=== PATIENT | female | born 1950 | race Caucasian/White ===

== ENCOUNTER → 2022-02-21 | Outpatient (CLI) | payer MEDICARE, OTHER ==
[2022-02-21 23:39] LABS: African American GFR (CKD) 47.8 (60.0-200.0); Anion Gap 14.4 mmol/L (10.00-18.00); BUN/Creat Ratio 12.38 Ratio (12.00-20.00); Blood Urea Nitrogen 16.1 mg/dL (9.0-27.0); Carbon Dioxide 23.7 mmol/L (20.0-27.5); Non-African American GFR(CKD) 41.2 (60.0-200.0); Potassium 4.3 mmol/L (3.5-5.5)
[2022-02-22 09:39] LABS: HCT 42.9 % (37.2-46.3); MCH 29.2 pg (27.0-32.0); MCHC 32.6 g/dL (32.0-37.0); MCV 89.4 fL (80.0-97.0); Mean Platelet Volume 10.1 fL (9.5-12.2); NRBC Per 100 WBC 0 /100 WBCS (0.0-0.0); Platelet Count 320 X 10*3/uL (140-440); RDW 13.1 % (11.5-14.5); WBC 21.48 X 10*3/uL (4.50-10.00)
[2022-02-22 11:44] LABS: Basophils # (A) 0.04 X 10*3/uL (0.00-0.10); Basophils % (A) 0.2 %; Eosinophils # (A) 0 X 10*3/uL (0.04-0.35); Eosinophils % (A) 0 %; Immature Grans, Automated 0.5 %; Lymphocytes # (A) 1.76 X 10*3/uL (0.90-5.00); Lymphocytes % (A) 8.2 %; Monocytes % (A) 13.5 %; Neutrophils # (A) 16.68 X 10*3/uL (1.80-7.70); Neutrophils % (A) 77.6 %
[2022-02-22 11:45] LABS: RBC Morphology NORMAL
== END | disposition home or self-care (01) ==
LOC: LABPAT 15:05
PROVIDERS: ATTEND Urology
DX: Z01.812 Encounter for preprocedural laboratory examination (principal); N20.1 Calculus of ureter; N20.0 Calculus of kidney
CPT/HCPCS: 80048; 85025; 87086

== ENCOUNTER 2022-03-03 06:00 | Day surgery (SDC) | payer MEDICARE, OTHER ==
--- NOTE | 2022-03-02 22:02 | P.GSHP ---
History of Present Illness H&P Date: 03/02/22 Chief Complaint: Right flank pain The patient is a 71-year-old white female with a history of urolithiasis. She was hospitalized in January 2022 with a UTI complicated by a 5-6 mm right distal ureteral calculus. The computed tomography scan also showed a 3 mm right lower pole renal calculus and a punctate left lower pole renal calculus. She underwent placement of a left ureteral stent. Urine culture showed Klebsiella pneumoniae, while blood cultures showed E. coli. Her UTI has resolved. She now comes for cystoscopy, right ureteral stent removal, right ureteroscopy with holmium laser lithotripsy and stone basketing. - Constitutional Constitutional: Reports weakness, Denies chills, Denies fever - Genitourinary (Female) Genitourinary: Reports flank pain, Reports kidney stones Past Medical History Past Medical History: Asthma, Diabetes Mellitus, Hypertension Additional Past Medical History / Comment(s): fast heart rate, kidney stones at present, hx of "blood Sepsis" [facility] 01/26/-01/30 ICU for kidney stone. pt still doesnt feel well. stomach is upset, isnt eating a lot. History of Any Multi-Drug Resistant Organisms: None Reported Past Surgical History: Tonsillectomy Additional Past Surgical History / Comment(s): D&C, cystoscopy with right ureteral stent insertion Past Anesthesia/Blood Transfusion Reactions: No Reported Reaction Additional Past Anesthesia/Blood Transfusion Reaction / Comment(s): no blood transfusions Smoking Status: Never smoker - Past Family History Father Family Medical History: CVA/TIA, Deep Vein Thrombosis (DVT), Myocardial Infarction ([place]) Mother Family Medical History: Cancer Additional Family Medical History / Comment(s): Medications and Allergies Home Medications Medication Instructions Recorded Confirmed Type Albuterol Sulfate [Ventolin HFA] 2 puff INHALATION QID PRN 02/28/22 02/28/22 History Budesonide/Formoterol Fumarate 2 puff INHALATION BID 02/28/22 02/28/22 History [Symbicort 160-4.5 Mcg Inhaler] Cetirizine HCl [Zyrtec] 10 mg PO DAILY PRN 02/28/22 02/28/22 History Dulaglutide [Trulicity] 4.5 mg SQ WE 02/28/22 02/28/22 History Insulin Degludec [Tresiba 35 units SQ DAILY 02/28/22 02/28/22 History Flextouch U-100 Pen] Lisinopril-Hctz 10-12.5 mg 1 tab PO DAILY 02/28/22 02/28/22 History [Zestoretic 10-12.5] Metoprolol Succinate (ER) [Toprol 25 mg PO DAILY 02/28/22 02/28/22 History XL] Montelukast [Singulair] 10 mg PO HS 02/28/22 02/28/22 History Pioglitazone [Actos] 15 mg PO DAILY 02/28/22 02/28/22 History dilTIAZem HCL [dilTIAZem HCL 24Hr 240 mg PO DAILY 02/28/22 02/28/22 History ER (Xr)] metFORMIN HCL 1,000 mg PO BID 02/28/22 02/28/22 History traZODone HCL 100 mg PO HS PRN 02/28/22 02/28/22 History Allergies Allergy/AdvReac Type Severity Reaction Status Date / Time nitrofurantoin Allergy Unknown Verified 02/28/22 14:25 [From Macrobid] Surgical - Exam - General well developed, well nourished, no distress - Abdomen Abdomen: soft, tender (Right-sided tenderness), no guarding, no rigid, no rebound - Genitourinary normal external genitalia - Psychiatric oriented to time, oriented to person, oriented to place, speech is normal, memory intact Results - Imaging CT scan - abdomen: report reviewed, image reviewed Assessment and Plan (1) Calculus of ureter Status: Acute Code(s): N20.1 - CALCULUS OF URETER SNOMED Code(s): 51196370 (2) Calculus of kidney Status: Acute Code(s): N20.0 - CALCULUS OF KIDNEY SNOMED Code(s): 19233549 Plan: Cystoscopy, right ureteral stent removal, right ureteroscopy with holmium laser lithotripsy and stone basketing. The procedure has been reviewed in detail with the patient. She has been made aware of potential risks, which include anesthesia, bleeding, infection, inability to successfully remove the calculus, and ureteral injury.
--- NOTE | 2022-03-03 06:32 | XR ---
EXAMINATION TYPE: XR KUB DATE OF EXAM: 03/03/2022 COMPARISON: NONE HISTORY: Preop kidney stone TECHNIQUE: Single view FINDINGS: There is right-sided double-J ureteral stent. Bowel gas pattern is nonacute. No sign of int estinal obstruction or pneumoperitoneum. No definite calculus seen over the kidneys. IMPRESSION: Nonacute abdomen.
[2022-03-03] MEDS ORDERED: MIDAZOLAM 2 MG/2 ML VIAL IV PRN (06:39)
[2022-03-03] MEDS ORDERED: LIDOCAINE 1% (10MG/ML) FOR IV START INTRADERMA PRN (06:39)
[2022-03-03] MEDS ORDERED: ONDANSETRON 4 MG/2 ML VIAL IVP ONE (06:39)
[2022-03-03] MEDS ORDERED: DEXAMETHASONE SOD PHOSPHATE 4 MG/ML 1 ML VIAL IV ONE (06:39)
[2022-03-03] MEDS ORDERED: LACTATED RINGERS 1,000 ML IV SCH (06:39)
[2022-03-03] MEDS ORDERED: HYDROmorphone 0.5 MG/0.5 ML SYRINGE IVP PRN (07:00)
[2022-03-03 07:18] LABS: Glucose,Whole Blood 199 mg/dL (70-110)
[2022-03-03] MEDS ORDERED: LIDOCAINE 2% INJ 20 MG/ML (2 ML VIAL) ONE (07:40)
[2022-03-03] MEDS ORDERED: MIDAZOLAM 2 MG/2 ML VIAL ONE (07:40)
[2022-03-03] MEDS ORDERED: SUCCINYLCHOLINE CHLORIDE 200 MG/10 ML VIAL IV ONE (07:40)
[2022-03-03] MEDS ORDERED: fentaNYL (PF) 50 MCG/ML 2 ML AMP ONE (07:40)
[2022-03-03] MEDS ORDERED: PROPOFOL 10 MG/ML 20 ML VIAL IV ONE (07:40)
--- NOTE | 2022-03-03 08:32 | P.OP ---
Date of Procedure: 03/03/22 Preoperative Diagnosis: Right ureteral calculus, right renal calculus Postoperative Diagnosis: Same Procedure(s) Performed: Cystoscopy, right ureteral stent removal, right ureteroscopy Anesthesia: ROSAMARIAA Surgeon: Gerry Leo Estimated Blood Loss (ml): 0 IV fluids (ml): 300 Pathology: none sent Condition: stable Disposition: PACU Indications for Procedure: The patient is a 71-year-old white female with a history of urolithiasis. She was hospitalized in January 2022 with a UTI complicated by a 5-6 mm right distal ureteral calculus. The computed tomography scan also showed a 3 mm right lower pole renal calculus and a punctate left lower pole renal calculus. She underwent placement of a left ureteral stent. Urine culture showed Klebsiella pneumoniae, while blood cultures showed E. coli. Her UTI has resolved. She now comes for cystoscopy, right ureteral stent removal, right ureteroscopy with holmium laser lithotripsy and stone basketing. Operative Findings: No calculus seen. Description of Procedure: The patient was taken to the operating room and placed in the dorsolithotomy position, with legs supported in Gopal stirrups. The external genitalia was prepped and draped sterilely. The 30 lens was used to introduce the 21-Hebrew Harris cystoscopic sheath through the urethra and into the bladder under direct vision. The bladder was examined in its entirety. No tumors or foreign bodies were seen. The distal end of the right ureteral stent was grasped with grasping forceps and removed along with the cystoscope. The Harris semirigid ureteroscope was advanced into the bladder, and the right ureteral orifice was cannulated. The ureteroscope was slowly advanced under direct vision, up to the ureteropelvic junction. No calculi were seen. The semirigid ureteroscope was removed, and the Harris Cobra flexible ureteroscope was advanced in the bladder. The right ureteral orifice was cannulated, and the ureteroscope was advanced under direct vision, up to the renal pelvis. Each calyx was examined. Some mucus was seen within the calyces, but no calculi were seen. The ureteroscope was slowly withdrawn under direct vision. No calculi were seen, and there was no evidence of ureteral trauma. The patient tolerated the procedure well and was taken to the recovery room in stable condition.
[2022-03-03 08:40] VITALS: TEMP 96.9
[2022-03-03 09:00] LABS: Glucose,Whole Blood 186 mg/dL (70-110)
[2022-03-03 09:13] VITALS: RESP 18
[2022-03-03 09:56] VITALS: BP 122/76; PULSE 82
== END 2022-03-03 10:57 | disposition home or self-care (01) ==
LOC: OR 06:00
PROVIDERS: ATTEND Urology
DX: N20.2 Calculus of kidney with calculus of ureter (principal); J45.909 Unspecified asthma, uncomplicated; E11.9 Type 2 diabetes mellitus without complications; I10 Essential (primary) hypertension; Z90.89 Acquired absence of other organs; Z82.49 Family history of ischemic heart disease and other diseases of the circulatory system; Z83.2 Family history of diseases of the blood and blood-forming organs and certain disorders involving the immune mechanism; Z79.51 Long term (current) use of inhaled steroids; Z79.4 Long term (current) use of insulin; Z79.899 Other long term (current) drug therapy; Z79.84 Long term (current) use of oral hypoglycemic drugs
CPT/HCPCS: 74018; 52310; C1769; J2250; J0330; J1100; J0690; J2405; J3010; J2704; J2001

== ENCOUNTER → 2023-10-25 | Outpatient (CLI) | payer MEDICARE, OTHER ==
[2023-10-25 15:13] LABS: Blood Urea Nitrogen 20.1 mg/dL (9.0-27.0); Calcium 10.7 mg/dL (8.7-10.3); Carbon Dioxide 25.4 mmol/L (21.6-31.8); Chloride 99 mmol/L (96-109); Glucose 171 mg/dL (70-110); Potassium 4.4 mmol/L (3.5-5.5); Sodium 139 mmol/L (135-145)
[2023-10-25 15:23] LABS: Basophils # (A) 0.02 X 10*3/uL (0.00-0.10); Basophils % (A) 0.2 %; Eosinophils # (A) 0 X 10*3/uL (0.04-0.35); Eosinophils % (A) 0 %; HGB 14.3 g/dL (12.0-15.0); Lymphocytes # (A) 2.84 X 10*3/uL (0.90-5.00); Lymphocytes % (A) 32.4 %; MCH 30.8 pg (27.0-32.0); MCHC 33.3 g/dL (32.0-37.0); MCV 92.5 FL (80.0-97.0); Monocytes % (A) 11.4 %; NRBC Per 100 WBC 0 X 10*3/uL (0.00-0.01); Neutrophils # (A) 4.87 X 10*3/uL (1.80-7.70); Neutrophils % (A) 55.5 %; Platelet Count 347 X 10*3/uL (140-440); RBC 4.65 X 10*6/uL (4.10-5.20); RDW 13.2 % (11.5-14.5); WBC 8.77 X 10*3/uL (4.50-10.00)
== END | disposition home or self-care (01) ==
LOC: LABPAT 09:15
PROVIDERS: ATTEND Orthopaedic Surgery Hand Surgery
DX: Z01.812 Encounter for preprocedural laboratory examination (principal); M65.312 Trigger thumb, left thumb
CPT/HCPCS: 80048; 85025

== ENCOUNTER 2023-11-01 06:16 | Day surgery (SDC) | payer MEDICARE, OTHER ==
--- NOTE | 2023-10-30 11:15 | P.HPOR ---
History of Present Illness H&P Date: 10/30/23 Subjective: This is a 73 year old female that presents today for follow up evaluation regarding a 3 to four-month history of progressively worsening left thumb pain with associated locking, catching and clicking. She notices that the thumb often gets locked down in the flexed position requiring passive extension. She denies any injury or inciting event. She denies any prior injury or surgery on this hand in the past. She underwent steroid injection for this trigger thumb in December of 2022 and had 9 months of relief. Physical Examination: LUE: AIN/PIN/Radial/Ulnar/Median motor intact. Radial/Ulnar/Median SILT. 2+/4 Radial/Ulnar pulses palpated. 5/5 APB, 5/5 FDI. Negative Finkelsteins, negative CMC grind, negative Durkan's compression. TTP over thumb A1 tom with locking and catching. Impression: 1.) Left thumb trigger finger Plan: Diagnosis and treatment options were discussed with the patient. She has failed conservative treatment and wishes to pursue a left thumb A1 tom release. Risks and benefits of surgery including bleeding, infection, damage to surrounding tissue, need for further surgery, residual numbness were discussed and the patient wished to go forward with surgery.The patient was agreeable with this plan. CC: Azael Maurer D.O. -Benjy Gould DO Orthopedic Hand/Upper Extremity Surgeon Past Medical History Past Medical History: Asthma, Diabetes Mellitus, Hypertension Additional Past Medical History / Comment(s): fast heart rate, kidney stones at present, hx of "blood Sepsis" [facility] 01/26/-01/30 ICU for kidney stone. pt still doesnt feel well. stomach is upset, isnt eating a lot. History of Any Multi-Drug Resistant Organisms: None Reported Past Surgical History: Tonsillectomy Additional Past Surgical History / Comment(s): D&C, cystoscopy with right ureteral stent insertion Past Anesthesia/Blood Transfusion Reactions: No Reported Reaction Additional Past Anesthesia/Blood Transfusion Reaction / Comment(s): no blood transfusions Smoking Status: Never smoker - Past Family History Father Family Medical History: CVA/TIA, Deep Vein Thrombosis (DVT), Myocardial Infarction ([place]) Mother Family Medical History: Cancer Additional Family Medical History / Comment(s): Medications and Allergies Home Medications Medication Instructions Recorded Confirmed Type Albuterol Sulfate [Ventolin HFA] 2 puff INHALATION QID PRN 02/28/22 03/03/22 History Budesonide/Formoterol Fumarate 2 puff INHALATION BID 02/28/22 03/03/22 History [Symbicort 160-4.5 Mcg Inhaler] Cetirizine HCl [Zyrtec] 10 mg PO DAILY PRN 02/28/22 03/03/22 History Dulaglutide [Trulicity] 4.5 mg SQ WE 02/28/22 03/03/22 History Insulin Degludec [Tresiba 35 units SQ DAILY 02/28/22 03/03/22 History Flextouch U-100 Pen] Lisinopril-Hctz 10-12.5 mg 1 tab PO DAILY 02/28/22 03/03/22 History [Zestoretic 10-12.5] Metoprolol Succinate (ER) [Toprol 25 mg PO DAILY 02/28/22 03/03/22 History XL] Montelukast [Singulair] 10 mg PO HS 02/28/22 03/03/22 History Pioglitazone [Actos] 15 mg PO DAILY 02/28/22 03/03/22 History dilTIAZem HCL [dilTIAZem HCL 24Hr 240 mg PO DAILY 02/28/22 03/03/22 History ER (Xr)] metFORMIN HCL 1,000 mg PO BID 02/28/22 03/03/22 History traZODone HCL 100 mg PO HS PRN 02/28/22 03/03/22 History Allergies Allergy/AdvReac Type Severity Reaction Status Date / Time nitrofurantoin Allergy Unknown Verified 03/03/22 06:52 [From Macrobid] Physical Examination Osteopathic Statement: *. No significant issues noted on an osteopathic structural exam other than those noted in the History and Physical/Consult.
[2023-10-30 15:08] VITALS: BMI 34.0
[~2023-11-01 06:16] MED LIST: LIDOCAINE 1% (10MG/ML) FOR IV START INTRADERMA PRN; Pre Op ABX Message 1 EACH MISC MISCELLANE ONE
[2023-11-01 06:54] VITALS: TEMP 97.1
[2023-11-01] MEDS ORDERED: HYDROmorphone 0.5 MG/0.5 ML SYRINGE IVP PRN (07:00)
[2023-11-01 07:01] LABS: Glucose,Whole Blood 109 mg/dL (70-110)
[2023-11-01] MEDS: IV FLUID CONTINUATION 1,000 ML IV ONE (07:02)
[2023-11-01] MEDS: ONDANSETRON 4 MG/2 ML VIAL IVP ONE (07:02)
[2023-11-01] MEDS: LACTATED RINGERS 1,000 ML IV SCH (07:02)
[2023-11-01] MEDS ORDERED: PROPOFOL 10 MG/ML 20 ML VIAL IV ONE (07:23)
[2023-11-01] MEDS ORDERED: MIDAZOLAM 2 MG/2 ML VIAL ONE (07:23)
[2023-11-01] MEDS ORDERED: fentaNYL (PF) 50 MCG/ML 2 ML AMP ONE (07:23)
[2023-11-01] MEDS: LIDOCAINE 2% INJ 20 MG/ML SQ ONE (07:33)
[2023-11-01] MEDS: BUPIVACAINE (PF) 0.5% 30 ML VIAL SQ ONE (07:33)
[2023-11-01] MEDS: LIDOCAINE 2% (PF) 20 MG/ML 10 ML AMP SQ ONE (07:33)
--- NOTE | 2023-11-01 08:00 | P.OP ---
Date of Procedure: 11/01/23 Preoperative Diagnosis: Left thumb trigger finger Postoperative Diagnosis: Left thumb trigger finger Procedure(s) Performed: Left thumb A1 tom release Anesthesia: MAC Surgeon: Benjy Gould Packaging Sales Consultant #1: Leonard Carlin Pathology: none sent Condition: stable Disposition: PACU Description of Procedure: This is a 73 year old female who presents today for a left thumb trigger finger A1 tom release after having failed conservative treatment. Risks and benefits of surgery were discussed with the patient including bleeding, damage to surrounding tissue, infection, need for further surgery as well as risks of anesthesia including pulmonary embolism and even and the patient wished to proceed with surgical intervention. The patient was seen in the pre-operative area by myself. Consent and H&P were completed and updated. The correct extremity was marked in the pre-operative area by myself and all other questions were answered. Operative Narrative: The patient was brought to the operating room by the department of anesthesia. They remained on the portable stretcher and a rolling hand table was brought to the side of the operative extremity. Pre-operative time out was performed indicating the correct patient, procedure and laterality. All in the room agreed. Pre-operative antibiotics were given prior to skin incision. The patient was then drifted off to sleep by the department of anesthesia. MAC anesthesia was utilized and a 50:50 mixture of 1% Lidocaine and 0.5% bupivacaine was injected into the subcutaneous tissues of the palmar skin, 5 ccs total. A nonsterile tourniquet was then applied to the operative extremity and the operative upper extremity was then prepped and draped in normal sterile fashion. The operative extremity was the exsanguinated with an esmarch bandage and the tourniquet was inflated to 250mmHg. Transverse incision was made at the base of the thumb overlying the A1 tom. Blunt dissection was taken down to the level of the A1 tom. Ragnell retractors were placed both radially and ulnarly to protect neurovascular bundle s. Littler tenotomy scissors were then used to release the A1 tom from proximal to distal under direct visualization. Proximal fascial attachments were released. The tendon was then taken through range of motion and no locking or catching was appreciated. The wound was then closed with interrupted 4-0 nylon sutures in a horizontal mattress fashion. Sterile dressing consisting of adaptic, 4x4s, webril, and an thomas wrap was applied. Tourniquet was let down and the hand was immediately well perfused. The patient was then woken by the department of anesthesia and transferred to PACU in stable condition. Leonard BAINS was present to assist in retraction and protection of neurovascular structures. Benjy Gould D.O. Orthopedic Hand/Upper Extremity Surgeon
[2023-11-01 08:38] LABS: Glucose,Whole Blood 137 mg/dL (70-110)
[2023-11-01 08:39] VITALS: BP 114/56; PULSE 66; RESP 16
== END 2023-11-01 08:53 | disposition home or self-care (01) ==
LOC: OR 06:16
PROVIDERS: ATTEND Orthopaedic Surgery Hand Surgery
DX: M65.312 Trigger thumb, left thumb (principal); E11.9 Type 2 diabetes mellitus without complications; I10 Essential (primary) hypertension; J45.909 Unspecified asthma, uncomplicated; F41.9 Anxiety disorder, unspecified; Z79.4 Long term (current) use of insulin; Z79.51 Long term (current) use of inhaled steroids; Z79.84 Long term (current) use of oral hypoglycemic drugs; Z87.442 Personal history of urinary calculi; Z88.1 Allergy status to other antibiotic agents; Z90.89 Acquired absence of other organs; Z98.890 Other specified postprocedural states
CPT/HCPCS: 26055; J2001; J2250; J2405; J3010; J2704; J0665